=== PATIENT | female | born 1995 | race Caucasian/White ===

== ENCOUNTER 2022-02-08 12:14 | Observation (INO) | payer OTHER, SELFPAY ==
[2022-02-08] VITALS (36 sets, daily range): BP systolic 118–155; BP diastolic 64–97; PULSE 102–140; RESP 16–32; TEMP 37–37.3; O2SAT 94–100; BMI 22.8
--- NOTE | ~2022-02-08 | XR_ITS ---
EXAMINATION: XR chest 1V portable 02/08/2022 12:41 INDICATION: Shortness of breath. Asthma. Cough. PROCEDURE: AP portable chest COMPARISON: No prior studies for comparison. FINDINGS: The lungs are clear. The cardiomediastinal silhouette is within normal limits. There are no pleural effusions. There is no pneumothorax suspected. IMPRESSION: 1: NO ACUTE CARDIOPULMONARY DISEASE. Reviewed, dictated and finalized at location A.
--- NOTE | ~2022-02-08 | CT_ITS ---
EXAMINATION: CTA chest PE protocol DATE: 02/08/2022 17:13 INDICATION: PE suspected TECHNIQUE: Computed tomography angiography (CTA) of the chest was performed with 100 mL Omnipaque-350 intravenous contrast timed to evaluate the pulmonary arteries. Coronal maximum intensity projection 3D-reconstructions were created by the technologist. The dose-length product (DLP) was 172.60 mGy-cm. Automated exposure control and iterative reconstruction technique were employed. COMPARISON: X-ray chest, same date. FINDINGS: Lung parenchyma and airways: Ill-defined areas of centrilobular groundglass opacity with several scat tered centrilobular nodular opacities, best seen in the anterior left lower lobe. Pleura: Unremarkable. Thoracic inlet, axillae and chest wall: Unremarkable. Thoracic aorta: Normal. Mediastinum: Normal. Heart and pericardium: Normal. Coronary artery calcifications: Absent. Upper abdomen: No significant finding. Bones: No acute osseous finding. Pulmonary arteries: Study quality: Mild motion artifact. No pulmonary emboli detected. IMPRESSION: Mildly motion limited examination. Within that constraint, no definite CT evidence of acute pulmonary embolus. Pulmonary opacities may reflect hypersensitivity pneumonitis, respiratory bronchiolitis in smokers, or infectious airways disease. Reviewed, dictated and finalized at location K. IMPRESSION: Mildly motion limited examination. Within that constraint, no definite CT evide nce of acute pulmonary embolus. Pulmonary opacities may reflect hypersensitivit y pneumonitis, respiratory bronchiolitis in smokers, or infectious airways dise ase.
--- NOTE | 2022-02-08 12:29 | ED.ASTHMA ---
HPI - Asthma General Chief Complaint: Asthma Stated Complaint: Asthma Time Seen by Provider: 02/08/22 12:20 Source: RN notes reviewed History of Present Illness HPI Narrative: Patient presents emergency department from home for asthma. Patient states that she has had a flareup of her asthma for the past 3 days states that is been associated with a cough this been nonproductive as well as wheezing she states she has had a low-grade fever of 100.3 she denies any chest pain she denies any abdominal pain nausea or vomiting states she has been using her inhaler at home with minimal relief. Related Data Allergies Allergy/AdvReac Type Severity Reaction Status Date / Time No Known Allergies Allergy Verified 02/08/22 12:30 Review of Systems Review of Systems: Gen.: Reports low-grade fever denies chill Eyes: Eye pain or visual change ENT: Denies congestion Respiratory: See HPI CV: Denies chest pain or palpitations GI: Denies abdominal pain nausea, emesis or diarrhea Musculoskeletal: Denies back pain or muscle pain Neuro: Denies numbness, tingling, weakness or focal weakness Skin: Denies rash Except as documented, all other systems reviewed and negative [facility] Past Medical History Medical History (Updated 02/08/22 @ 18:39 by Mumtaz Smart DO) Asthma Social History Social History (Updated 02/08/22 @ 12:31 by Mumtaz Smart DO) Smoking status: Never smoker Exam Narrative: APPEARANCE: No acute distress, nontoxic, resting in bed EYES: EOMI HEENT: Normocephalic, atraumatic, OMM RESPIRATORY: No respiratory distress wheezing's at the bilateral lung pelayo with decreased breath sounds in the bilateral lung bases no rhonchi CARDIOVASCULAR: Regular rate and rhythm without murmurs rubs or gallops. ABDOMINAL: Soft, nontender, nondistended, no rebound or guarding MUSCULOSKELETAl: Moves all extremities. No clubbing, cyanosis or edema. NEURO: Awake and alert. Following commands, speech normal, no focal deficits SKIN:: Warm, dry. No rashes lesions or abrasions PSYCHIATRIC: Normal affect/mood, Course Course Emergency Course: Patient continues to remain tachycardic CT scan shows pneumonia repeat lung exam shows patient to have wheezing again this time will admit Discussed with ELIAS Comer for Dr. Abreu agrees with admission Discussed with patient and family results of workup and diagnosis. Discussed need for admission. Patient and family understand and agree to current treatment plan Vital Signs Vital signs: Vital Signs Temperature 99.1 F 02/08/22 12:21 Pulse Rate 136 H 02/08/22 12:21 Respiratory Rate 26 H 02/08/22 12:21 Blood Pressure 136/92 H 02/08/22 12:21 Pulse Oximetry 100 02/08/22 12:21 Oxygen Delivery Room Air 02/08/22 12:21 Temperature 99.1 F 02/08/22 12:21 Pulse Rate 114 H 02/08/22 18:12 Respiratory Rate 32 H 02/08/22 18:12 Blood Pressure 136/79 02/08/22 14:30 Pulse Oximetry 100 02/08/22 14:31 Oxygen Delivery Room Air 02/08/22 12:21 MDM - Asthma Lab Data Result diagrams: 02/08/22 14:40 02/08/22 14:40 Labs: Lab Results 02/08/22 02/08/22 02/08/22 Range/Units 12:28 14:40 14:40 WBC 13.1 H (4.5-10.0) K/mm3 RBC 4.30 (4.2-5.4) M/mm3 Hgb 12.6 (12.0-15.0) g/dL Hct 38.6 (37.0-47.0) % MCV 89.8 (80-100) fl MCH 29.3 (26-34) pg MCHC 32.6 (32-36) g/dl RDW 13.5 (11.5-14.5) % Plt Count 163 (150-375) k/mm3 MPV 9.6 (7.4-10.4) fl Immature Gran % (Auto) 0.8 H (0-0.5) % Neut % (Auto) 92.4 H (45.5-73.1) % Lymph % (Auto) 2.9 L (18.3-44.2) % [place] % (Auto) 3.6 (2.6-8.5) % Eos % (Auto) 0.1 (0-4.4) % Baso % (Auto) 0.2 (0.2-1.2) % Lymph # (Auto) 0.38 L (0.9-3.2) K/mm3 [place] # (Auto) 0.5 (0.1-0.6) K/mm3 Eos # (Auto) 0.0 (0-0.3) K/mm3 Baso # (Auto) 0.0 (0.0-0.1) K/mm3 Abs Immat Gran (auto) 0.10 H (0.00-0.031) K/mm3 Absolute Neuts (auto) 12.1 H
[2022-02-08] MEDS: ALBUTEROL SULFATE NEB 2.5 MG/3 ML INH 5 MG INHALATION ×3 (12:39→20:12)
[2022-02-08] MEDS: IPRATROPIUM BR 0.02% INH SOLN 0.5 MG/2.5 ML VIAL INHALATION ×3 (12:39→20:12)
[2022-02-08] MEDS: methylPREDNISolone SOD SUCC 125 MG VIAL IV PUSH (12:46)
--- NOTE | 2022-02-08 13:01 | ECG_ITS ---
Measurements Intervals [place] Rate: 136 P: 68 ME: 113 QRS: 76 QRSD: 73 T: 41 QT: 263 QTc: 396 Interpretive Statements SINUS TACHYCARDIA NONSPECIFIC T-WAVE ABNORMALITY ABNORMAL RHYTHM ECG NO PREVIOUS ECG AVAILABLE FOR COMPARISON Electronically Signed On 02-09-2022 11:24:49 CDT by iRvka Ordaz M.D.
[2022-02-08 13:10] LABS: SARS-CoV-2 RNA PCR Negative
[2022-02-08] MEDS: SODIUM CHLORIDE 0.9% IV 1,000 ML 999 ML IV CONT ×2 (13:45→20:25)
[2022-02-08 14:46] LABS: Basophils Percent Auto 0.2 % (0.2-1.2); Eosinophils Percent Auto 0.1 % (0-4.4); Hematocrit 38.6 % (37.0-47.0); Hemoglobin 12.6 g/dL (12.0-15.0); Immature Granulocyte Percent A 0.8 % (0-0.5); Lymphocytes Absolute Auto 0.38 K/mm3 (0.9-3.2); Lymphocytes Percent Auto 2.9 % (18.3-44.2); Mean Corpuscular HGB Conc 32.6 g/dl (32-36); Mean Corpuscular Hemoglobin 29.3 pg (26-34); Mean Corpuscular Volume 89.8 fl (80-100); Mean Platelet Volume 9.6 fl (7.4-10.4); Monocytes Absolute Auto 0.5 K/mm3 (0.1-0.6); Monocytes Percent Auto 3.6 % (2.6-8.5); Neutrophils Absolute Auto 12.1 K/mm3 (1.3-6.7); Neutrophils Percent Auto 92.4 % (45.5-73.1); Platelet Count Result 163 k/mm3 (150-375); Red Cell Distribution Width 13.5 % (11.5-14.5); White Blood Count 13.1 K/mm3 (4.5-10.0)
[2022-02-08 15:06] LABS: INR 1.1; Prothrombin Time 13.7 Seconds (11.1-14.7)
[2022-02-08 15:08] LABS: Alanine Aminotransferase 25 U/L (6-35); Albumin Level 3.8 g/dL (3.5-5.1); Alkaline Phosphatase 48 U/L (38-126); Anion Gap 8 mmol/L (8-16); Aspartate Amino Transferase 27 U/L (14-36); Bilirubin,Total 0.6 mg/dL (0.2-1.3); Blood Urea Nitrogen 13 mg/dL (7-17); Carbon Dioxide 21 mmol/L (22-30); Chloride 106 mmol/L (98-107); Estimated CRCL calculation 82 ml/min; Estimated Glomerular Filt Rate > 60; Glucose 99 mg/dL (65-110); Partial Thromboplastin Time 27.9 SECONDS (22.3-36.8); Potassium 3.7 mmol/L (3.4-5.0); Sodium 135 mmol/L (137-145)
[2022-02-08 15:12] LABS: D Dimer 0.97 ug/mL (<0.48)
[2022-02-08 18:46] LABS: Lactic Acid Reflex 2.5 mmol/L (0.7-2.0)
--- NOTE | 2022-02-08 19:30 | ADMGEN ---
This patient, Jer Oseguera, was admitted to Medical Room 240-01. Patient/family oriented to hospital policies and general routines including ID bracelet, bed and alarms, visiting hours, pain management, procedures, bathroom and other care routines, personal items, smoking policy, room service/diet, and visiting hours. Information on how to activate the Rapid Response Team has been discussed. Patient/Family are encouraged to report perceived risks to care and to ask questions if they do not understand what they are told or what they should do.
--- NOTE | 2022-02-08 20:18 | PM.IMHP ---
H&P: HPI History of Present Illness Date/Time: 02/08/22 20:18 Chief Complaint: Shortness of breath Narrative: This is a 26-year-old female with past medical history significant for asthma, patient presents to the emergency room due to 3 days of worsening shortness of breath, wheezing, cough, sputum production of yellow phlegm, low-grade temp, has been using her inhaler quite frequently with no improvement of shortness of breath, poor per orally intake, denies any nausea, vomiting, abdominal pain, diarrhea, calves pain. Preliminary workup was significant for CT PE protocol of the chest was reported as: IMPRESSION: Mildly motion limited examination. Within that constraint, no definite CT evidence of acute pulmonary embolus. Pulmonary opacities may reflect hypersensitivity pneumonitis, respiratory bronchiolitis in smokers, or infectious airways disease. Review of Systems Review of Systems: shortness of breath, cough, sputum production, low-grade temp, poor appetite. Constitutional: Constitutional: Reports difficulty sleeping ( Secondary to shortness of breath), Reports fatigue, Reports fever(s) and Reports poor appetite Eyes: Eyes: Denies change in vision ENT: Denies dysphagia, Denies vertigo, Denies dizziness, Denies odynophagia and Denies disequilibrium Cardiovascular: Cardiovascular: Denies chest pain, Denies syncope, Denies irregular heart rhythm, Denies leg edema, Denies lightheadedness and Denies palpitations Respiratory: Respiratory: Reports change in phlegm color ( yellowish), Reports cough, Reports dyspnea and Reports wheezing Gastrointestinal: Gastrointestinal: Denies abdominal pain, Denies dyspepsia, Denies heartburn, Denies diarrhea, Denies nausea and Denies vomiting Genitourinary: Genitourinary: Reports no additional female genitourinary complaints and Reports as per HPI Musculoskeletal: Musculoskeletal: Denies back pain, Denies myalgias, Denies joint swelling and Denies muscle weakness Integumentary/Breasts: Skin/Breast: Denies rash Neurologic: Denies vertigo, Denies dizziness, Denies focal weakness and Denies Sensory deficit (Neuro) Psychiatric: Psychiatric: Reports no additional psychiatric complaints and Reports as per HPI Endocrine: Endocrine: Denies cold intolerance, Denies flushing, Denies heat intolerance, Denies polyphagia, Denies polydipsia and Denies palpitations Hematologic/Lymphatic: Hematologic/Lymphatic: Reports no additional hematologic/lymphatic complaints and Reports as per HPI Allergic/Immunologic: Allergic/Immunologic: Reports no additional allergic/immunologic complaints and Reports as per HPI [facility] Past Medical History Medical History (Updated 02/09/22 @ 01:18 by Cheli Bridges MD) Asthma Family History Family History (Updated 02/08/22 @ 20:36 by Daniel Alaniz, AMY) Grandparent Lung cancer Grandparent Lung cancer Grandparent Parkinsons disease Sibling Severe asthma Father High cholesterol Mother Hypertension Social History Social History (Updated 02/08/22 @ 12:31 by Mumatz Smart DO) Smoking status: Never smoker Alcohol intake: current Drinks per week: 2 Substance use type: marijuana Other substance usage details: edibles on occasion Spiritual care concerns: No Meds Home Medications and Allergies Home Medications Medication Instructions Recorded Confirmed Type albuterol 90 mcg/actuation aerosol 90 mcg inhalation Q2-3H PRN 02/08/22 02/08/22 History inhaler Shortness Of Breath montelukast 10 mg tablet 10 mg PO DAILY 02/08/22 02/08/22 History tezepelumab-ekko 210 mg/1.91 mL 210 mg subcut MONTHLY 02/08/22 02/08/22 History (110 mg/mL) subcutaneous syringe (Tezspire) tiotropium bromide 1.25 2 inh inhalation BID 02/08/22 02/08/22 History mcg/actuation mist for inhalation (Spiriva Respimat) Allergies Allergy/AdvReac Type Severity Reaction Status Date / Time No Known Allergies Allergy Verified 02/08/22 20:
[2022-02-08 21:34] LABS: Reflex Lactic Acid Yes or No Add Lactic
[2022-02-08 21:57] LABS: Lactic Acid 2.2 mmol/L (0.7-2.0)
[2022-02-08] MEDS: methylPREDNISolone SOD SUCC 125 MG VIAL 60 MG IV PUSH (23:15)
[2022-02-09] VITALS (14 sets, daily range): BP systolic 110–119; BP diastolic 61–63; PULSE 90–144; RESP 16–18; TEMP 36.4–36.8; O2SAT 93–96
[2022-02-09] MEDS: IPRATROPIUM BR 0.02% INH SOLN 0.5 MG/2.5 ML VIAL INHALATION ×5 (01:53→19:40)
[2022-02-09] MEDS: ALBUTEROL SULFATE NEB 2.5 MG/3 ML INH 5 MG INHALATION ×5 (01:53→19:39)
[2022-02-09] MEDS: methylPREDNISolone SOD SUCC 125 MG VIAL 60 MG IV PUSH (05:07)
[2022-02-09 05:15] LABS: Basophils Percent Auto 0.2 % (0.2-1.2); Hematocrit 37.2 % (37.0-47.0); Immature Granulocyte Absolute 0.12 K/mm3 (0.00-0.031); Immature Granulocyte Percent A 0.9 % (0-0.5); Lymphocytes Absolute Auto 0.43 K/mm3 (0.9-3.2); Lymphocytes Percent Auto 3.4 % (18.3-44.2); Mean Corpuscular HGB Conc 32.3 g/dl (32-36); Mean Corpuscular Hemoglobin 28.4 pg (26-34); Mean Corpuscular Volume 88.2 fl (80-100); Mean Platelet Volume 9.6 fl (7.4-10.4); Monocytes Absolute Auto 0.2 K/mm3 (0.1-0.6); Monocytes Percent Auto 1.8 % (2.6-8.5); Neutrophils Percent Auto 93.7 % (45.5-73.1); Platelet Count Result 200 k/mm3 (150-375); Red Blood Count 4.22 M/mm3 (4.2-5.4); Red Cell Distribution Width 13.5 % (11.5-14.5); White Blood Count 12.8 K/mm3 (4.5-10.0)
[2022-02-09 05:28] LABS: Alanine Aminotransferase 26 U/L (6-35); Albumin Level 3.8 g/dL (3.5-5.1); Alkaline Phosphatase 40 U/L (38-126); Anion Gap 10 mmol/L (8-16); Aspartate Amino Transferase 28 U/L (14-36); Bilirubin,Total 0.4 mg/dL (0.2-1.3); Blood Urea Nitrogen 14 mg/dL (7-17); Calcium 8.3 mg/dL (8.4-10.2); Carbon Dioxide 20 mmol/L (22-30); Chloride 105 mmol/L (98-107); Estimated CRCL calculation 95 ml/min; Estimated Glomerular Filt Rate > 60; Glucose 135 mg/dL (65-110); Potassium 4.2 mmol/L (3.4-5.0); Sodium 135 mmol/L (137-145)
[2022-02-09] MEDS: UMECLIDINIUM BROMIDE 62.5 MCG ELLIPTA 1 PUFF INHALATION (08:10)
[2022-02-09] MEDS: MONTELUKAST SODIUM 10 MG TABLET PO (08:29)
[2022-02-09] MEDS: ENOXAPARIN 40 MG/0.4 ML SYRINGE SUB-Q (08:29)
[2022-02-09] MEDS: methylPREDNISolone SOD SUCC 40 MG VIAL IV PUSH ×2 (08:30→16:51)
--- NOTE | 2022-02-09 10:00 | PM.IMPN ---
Progress Note: A&P Assessment and Plan (1) Sepsis: Code(s): A41.9 - Sepsis, unspecified organism Status: Acute Assessment and Plan: Patient meets SIRS criteria with tachycardia, tachypnea, source of infection, leukocytosis, lactic acidosis Lactic acid 2.5, repeat 2.1 Secondary to pneumonia Chest xray no cardiopulmonary disease CTA pulmonary opacities reflect hypersensitivity pneumonitis, or infectious airways disease Blood culture pending Sputum culture ordered 2L of fluids given in the ed Continue ceftriaxone and azithromycin WBC trending down currently 12.8 Trend labs Adjust therapy as indicated (2) Community acquired pneumonia: Code(s): J18.9 - Pneumonia, unspecified organism Status: Acute Assessment and Plan: CTA found opacities started on Rocephin and Zithromax Blood cultures and sputum cultures ordered and pending neb treatments await cultures (3) Asthma exacerbation: Code(s): J45.901 - Unspecified asthma with (acute) exacerbation Status: Acute Assessment and Plan: scheduled breathing treatment systemic steroids, titrated down to 40mg IV BID Trend respiratory status Continue home Singulair Restart home inhalers when appropriate Added famotidine, cough syrup Time Spent With Patient Time with patient: Greater than 35 minutes Subjective Date/time seen: 02/09/22 1000 Interval history: 02/09/22999 Patient stated that she is doing okay today. She does still have a pretty harsh cough. She also sounds very tight. She seems to have some congestion that is unrelieved at this time. Patient did state that she was recently admitted to [facility] and this is when this all started patient stated that it was 45 to 50? and raining. At the end of the trip is when she started to have all these changes. She stated that she is able to speak in full sentences today however she does have some shortness of breath walking. Cough still signs con around [place]. Patient is concerned because she has an appoint with her senior cyber security analyst on Wednesday for her asthma shot. Mg was 2.2. 02/08/22? 20:18 ?This is a 26-year-old female with past medical history significant for asthma, patient presents to the emergency room due to 3 days of worsening shortness of breath, wheezing, cough, sputum production of yellow phlegm, low-grade temp, has been using her inhaler quite frequently with no improvement of shortness of breath, poor per orally intake, denies any nausea, vomiting, abdominal pain, diarrhea, calves pain.? Preliminary workup was significant for CT PE protocol of the chest was reported as: IMPRESSION: Mildly motion limited examination. Within that constraint, no definite CT evidence of acute pulmonary embolus. Pulmonary opacities may reflect hypersensitivity pneumonitis, respiratory bronchiolitis in smokers, or infectious airways disease. Review of Systems Review of Systems: All systems reviewed & are unremarkable except as noted in HPI and below Exam Const: General: cooperative, healthy appearing, no acute distress, well developed, alert, awake and well nourished Nutritional Appearance: well nourished Orientation/consciousness: patient oriented x3 Limitations: no limitations HENMT: Head: normal to inspection Ears: hearing grossly normal bilaterally Face/Nose/Sinus: Normal external nose present Mouth: Yes Normal oral and palatal mucosa present, Yes lip normal and Yes tongue normal Teeth and gingiva: abnormal tooth and associated gingiva and poor dentition Eyes: General: appearance normal, both eyes and all related structures Neck: Neck: normal visual inspection, full ROM, trachea midline and supple Chest: Chest palpation & inspection: normal inspection of the chest Resp: Effort & Inspection: normal respiratory effort and able to speak in complete sentences Auscultation: diminished lung
--- NOTE | 2022-02-09 10:00 | P.PNIM_ITS ---
Progress Note: A&P Assessment and Plan (1) Sepsis: Code(s): A41.9 - Sepsis, unspecified organism Status: Acute Assessment and Plan: * Patient meets SIRS criteria with tachycardia, tachypnea, source of infection, leukocytosis, lactic acidosis * Lactic acid 2.5, repeat 2.1 * Secondary to pneumonia * Chest xray no cardiopulmonary disease * CTA pulmonary opacities reflect hypersensitivity pneumonitis, or infectious airways disease * Blood culture pending * Sputum culture ordered * 2L of fluids given in the ed * Continue ceftriaxone and azithromycin * WBC trending down currently 12.8 * Trend labs * Adjust therapy as indicated (2) Community acquired pneumonia: Code(s): J18.9 - Pneumonia, unspecified organism Status: Acute Assessment and Plan: * CTA found opacities * started on Rocephin and Zithromax * Blood cultures and sputum cultures ordered and pending * neb treatments * await cultures (3) Asthma exacerbation: Code(s): J45.901 - Unspecified asthma with (acute) exacerbation Status: Acute Assessment and Plan: * scheduled breathing treatment * systemic steroids, titrated down to 40mg IV BID * Trend respiratory status * Continue home Singulair * Restart home inhalers when appropriate * Added famotidine, cough syrup Time Spent With Patient Time with patient: Greater than 35 minutes Subjective Date/time seen: 02/09/22 1000 Interval history: 02/09/22 1000 Patient stated that she is doing okay today. She does still have a pretty harsh cough. She also sounds very tight. She seems to have some congestion that is unrelieved at this time. Patient did state that she was recently admitted to [facility] and this is when this all started patient stated that it was 45 to 50? and raining. At the end of the trip is when she started to have all these changes. She stated that she is able to speak in full sentences today however she does have some shortness of breath walking. Cough still signs con around [place]. 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 Mg was 2.2. 02/08/22? 20:18 ?This is a 26-year-old female with past medical history significant for asthma, patient presents to the emergency room due to 3 days of worsening shortness of breath, wheezing, cough, sputum production of yellow phlegm, low-grade temp, has been using her inhaler quite frequently with no improvement of shortness of breath, poor per orally intake, denies any nausea, vomiting, abdominal pain, diarrhea, calves pain.? Preliminary workup was significant for CT PE protocol of the chest was reported as: IMPRESSION: Mildly motion limited examination. Within that constraint, no definite CT ev idence of acute pulmonary embolus. Pulmonary opacities may reflect hypersensitivity pneumonitis, respiratory bronchiolitis in smokers, or infectious airways disease. Review of Systems Review of Systems: All systems reviewed & are unremarkable except as noted in HPI and below Exam Const: General: cooperative, healthy appearing, no acute distress, well developed, alert, awake and well nourished Nutritional Appearance: well nourished Orientation/consciousness: patient oriented x3 Limitations: no limitations HENMT: Head: normal to inspection Ears: hearing grossly normal bilaterally Face/Nose/Sinus: Normal external nose present Mouth: Yes Nor
[2022-02-09 10:30] LABS: Magnesium 2.2 mg/dL (1.6-2.3)
[2022-02-09] MEDS: LORATADINE/PSEUDOEPHEDRINE (*CRX) 10/240 MG TABLET ER 24 HR 1 TAB PO (10:46)
[2022-02-09] MEDS: FAMOTIDINE 20 MG TABLET PO ×2 (10:46→20:17)
[2022-02-09] MEDS: guaiFENesin/DEXTROMETHORPHAN 10 ML UDC PO (18:44)
--- NOTE | 2022-02-09 19:47 | PCRCNOTE ---
at 1999 rounds, pt found with HR at 122. pt complaining of high heart rate. RT called Nahomi Castañeda to inquire about changing pt meds from albuterol to levalbuterol to lessen cardiac affects. waiting on a call back to change medication.
--- NOTE | 2022-02-09 19:58 | PCRCNOTE ---
pt HR at 144 post treatment with palpitations. RT called Nahomi Castañeda and Dr. Bridges and left messages. waiting on the call back.
--- NOTE | 2022-02-09 21:38 | PCRCNOTE ---
telephone order read back from Dr. Bridges to change albuterol to levalbuterol Q4H.
[2022-02-10] VITALS (12 sets, daily range): BP systolic 122; BP diastolic 68–74; PULSE 89–118; RESP 16–18; TEMP 36.5–36.6; O2SAT 92–96
[2022-02-10] MEDS: LEVALBUTEROL NEB 1.25 MG/3 ML 0.63 MG INHALATION ×5 (00:05→16:46)
[2022-02-10] MEDS: IPRATROPIUM BR 0.02% INH SOLN 0.5 MG/2.5 ML VIAL INHALATION ×5 (00:05→16:47)
--- NOTE | 2022-02-10 04:10 | PCRCNOTE ---
pt is no longer complaining of high heart rate and states that she feels better after medication was switched from albuterol to levalbuterol. HR at 410 is 100 BPM compared to 144 at 1999.
[2022-02-10 05:41] LABS: Basophils Percent Auto 0.1 % (0.2-1.2); Hematocrit 37.2 % (37.0-47.0); Hemoglobin 12.2 g/dL (12.0-15.0); Immature Granulocyte Absolute 0.18 K/mm3 (0.00-0.031); Immature Granulocyte Percent A 0.9 % (0-0.5); Lymphocytes Absolute Auto 1.07 K/mm3 (0.9-3.2); Lymphocytes Percent Auto 5.1 % (18.3-44.2); Mean Corpuscular HGB Conc 32.8 g/dl (32-36); Mean Corpuscular Hemoglobin 28.8 pg (26-34); Mean Corpuscular Volume 87.9 fl (80-100); Mean Platelet Volume 9.9 fl (7.4-10.4); Monocytes Absolute Auto 1.4 K/mm3 (0.1-0.6); Monocytes Percent Auto 6.7 % (2.6-8.5); Neutrophils Absolute Auto 18.4 K/mm3 (1.3-6.7); Neutrophils Percent Auto 87.2 % (45.5-73.1); Platelet Count Result 260 k/mm3 (150-375); Red Blood Count 4.23 M/mm3 (4.2-5.4); Red Cell Distribution Width 13.7 % (11.5-14.5); White Blood Count 21.1 K/mm3 (4.5-10.0)
[2022-02-10 06:00] LABS: Alanine Aminotransferase 26 U/L (6-35); Albumin Level 3.8 g/dL (3.5-5.1); Alkaline Phosphatase 39 U/L (38-126); Anion Gap 9 mmol/L (8-16); Aspartate Amino Transferase 27 U/L (14-36); Bilirubin,Total 0.4 mg/dL (0.2-1.3); Blood Urea Nitrogen 16 mg/dL (7-17); Calcium 8.2 mg/dL (8.4-10.2); Carbon Dioxide 24 mmol/L (22-30); Chloride 103 mmol/L (98-107); Estimated CRCL calculation 82 ml/min; Estimated Glomerular Filt Rate > 60; Glucose 121 mg/dL (65-110); Sodium 136 mmol/L (137-145)
[2022-02-10] MEDS: LORATADINE/PSEUDOEPHEDRINE (*CRX) 10/240 MG TABLET ER 24 HR 1 TAB PO (08:27)
[2022-02-10] MEDS: MONTELUKAST SODIUM 10 MG TABLET PO (08:27)
[2022-02-10] MEDS: ENOXAPARIN 40 MG/0.4 ML SYRINGE SUB-Q (08:28)
[2022-02-10] MEDS: FAMOTIDINE 20 MG TABLET PO (08:28)
[2022-02-10] MEDS: methylPREDNISolone SOD SUCC 40 MG VIAL IV PUSH (08:28)
[2022-02-10] MEDS: UMECLIDINIUM BROMIDE 62.5 MCG ELLIPTA 1 PUFF INHALATION (08:37)
--- NOTE | 2022-02-10 10:45 | P.DS_ITS ---
DS: Admitting Diagnosis Discharge Date 02/10/22 1045 Admitting Diagnosis Asthma exacerbation, PNA, Sepsis DS: Discharge Diagnosis Discharge Diagnosis (1) Sepsis: Code(s): A41.9 - Sepsis, unspecified organism Status: Acute Assessment and Plan: * Patient meets SIRS criteria with tachycardia, tachypnea, source of infection, leukocytosis, lactic acidosis * Lactic acid 2.5, repeat 2.1 * Secondary to pneumonia * Chest xray no cardiopulmonary disease * CTA pulmonary opacities reflect hypersensitivity pneumonitis, or infectious airways disease * Blood culture pending * Sputum culture ordered * 2L of fluids given in the ed * Continue ceftriaxone and azithromycin * WBC trending down currently 12.8 * Trend labs * Adjust therapy as indicated (2) Community acquired pneumonia: Code(s): J18.9 - Pneumonia, unspecified organism Status: Acute Assessment and Plan: * CTA found opacities * started on Rocephin and Zithromax * Blood cultures and sputum cultures ordered and pending * neb treatments * await cultures (3) Asthma exacerbation: Code(s): J45.901 - Unspecified asthma with (acute) exacerbation Status: Acute Assessment and Plan: * scheduled breathing treatment * systemic steroids, titrated down to 40mg IV BID * Trend respiratory status * Continue home Singulair * Restart home inhalers when appropriate * Added famotidine, cough syrup (4) Leukocytosis: Code(s): D72.829 - Elevated white blood cell count, unspecified Status: Acute Assessment and Plan: * WBC elevated to 21.1 * Highly likely related to steroid use * Antibiotics continued at this time * Follow up lead oxide mill tender appointment in the am DS: Summary Hospital Course Hospital Course: Patient is a 26-year-old female with a past medical history of asthma who presented to the ED with complaints worsening shortness of Breath wheezing, coughing, sputum production any low from with a low-grade temperature. Prior to arriving to the hospital patient had went to [place] for a wedding were was cold and raining. Prior to arrival patient was doing her neb treatments 3 times a 6 hour. Upon arrival patient was noted to be and is sepsis with tachycardia, tachypnea, leukocytosis, lactic acidosis with a primary source being pneumonia. CTA showed pulmonary opacities and Infectious airways. Blood cultures are negative to date. Sputum culture pending. Patient was given IV fluids in the ED and was started on ceftriaxone and azithromycin. Patient was also noted to be in and acute asthma exacerbation and was given steroids that have been titrated. Magnesium was normal. Neb treatments was also given scheduled. Famotidine and cough syrup was also added. Patient has appointment with her lead oxide mill tender on 02/11/2022 and receives monthly injections for her asthma control. Patient is feeling better. She still has a cough and her lung sounds are diminished. She is able to walk around and is feeling better. Patient denies any chest pain, nausea, vomiting, diarrhea, constipation, weakness or fatigue. Patient is able to walk around and not feel short of of breath. Patient is stable for discharge for labs and vital signs at this time it is noted that her WBCs are elevated which is more likely related to steroids. Reviewed the case with Dr. Abreu, Dr. Kirkpatrick went into and see the patient, and felt the patient could be discharged as well. Called and up
--- NOTE | 2022-02-10 10:45 | PM.DS ---
DS: Admitting Diagnosis Discharge Date 02/10/22 1045 Admitting Diagnosis Asthma exacerbation, PNA, Sepsis DS: Discharge Diagnosis Discharge Diagnosis (1) Sepsis: Code(s): A41.9 - Sepsis, unspecified organism Status: Acute Assessment and Plan: Patient meets SIRS criteria with tachycardia, tachypnea, source of infection, leukocytosis, lactic acidosis Lactic acid 2.5, repeat 2.1 Secondary to pneumonia Chest xray no cardiopulmonary disease CTA pulmonary opacities reflect hypersensitivity pneumonitis, or infectious airways disease Blood culture pending Sputum culture ordered 2L of fluids given in the ed Continue ceftriaxone and azithromycin WBC trending down currently 12.8 Trend labs Adjust therapy as indicated (2) Community acquired pneumonia: Code(s): J18.9 - Pneumonia, unspecified organism Status: Acute Assessment and Plan: CTA found opacities started on Rocephin and Zithromax Blood cultures and sputum cultures ordered and pending neb treatments await cultures (3) Asthma exacerbation: Code(s): J45.901 - Unspecified asthma with (acute) exacerbation Status: Acute Assessment and Plan: scheduled breathing treatment systemic steroids, titrated down to 40mg IV BID Trend respiratory status Continue home Singulair Restart home inhalers when appropriate Added famotidine, cough syrup (4) Leukocytosis: Code(s): D72.829 - Elevated white blood cell count, unspecified Status: Acute Assessment and Plan: WBC elevated to 21.1 Highly likely related to steroid use Antibiotics continued at this time Follow up zinc plate grainer appointment in the am DS: Summary Hospital Course Hospital Course: Patient is a 26-year-old female with a past medical history of asthma who presented to the ED with complaints worsening shortness of Breath wheezing, coughing, sputum production any low from with a low-grade temperature. Prior to arriving to the hospital patient had went to [place] for a wedding were was cold and raining. Prior to arrival patient was doing her neb treatments 3 times a 6 hour. Upon arrival patient was noted to be and is sepsis with tachycardia, tachypnea, leukocytosis, lactic acidosis with a primary source being pneumonia. CTA showed pulmonary opacities and Infectious airways. Blood cultures are negative to date. Sputum culture pending. Patient was given IV fluids in the ED and was started on ceftriaxone and azithromycin. Patient was also noted to be in and acute asthma exacerbation and was given steroids that have been titrated. Magnesium was normal. Neb treatments was also given scheduled. Famotidine and cough syrup was also added. Patient has appointment with her zinc plate grainer on 02/11/2022 and receives monthly injections for her asthma control. Patient is feeling better. She still has a cough and her lung sounds are diminished. She is able to walk around and is feeling better. Patient denies any chest pain, nausea, vomiting, diarrhea, constipation, weakness or fatigue. Patient is able to walk around and not feel short of of breath. Patient is stable for discharge for labs and vital signs at this time it is noted that her WBCs are elevated which is more likely related to steroids. Reviewed the case with Dr. Abreu, Dr. Kirkpatrick went into and see the patient, and felt the patient could be discharged as well. Called and updated her zinc plate grainer about this visit. Status at Discharge Functional status at discharge: independent ambulation Overall status at discharge: patient is progressing back to baseline Time Spent with Patient Time attestation: Total time spent providing and/or coordinating discharge services: 35 minutes Time spent: Greater than 30 minutes Specific discharge activities: Diagnostic testing, chart review, developing a treatment plan
[2022-02-10] MEDS: MAGNESIUM SULF 2 GM/WATER 50ML 2 GM/50 ML BAG IVPB (11:29)
== END 2022-02-10 17:20 | disposition home or self-care (01) ==
LOC: ANHED 18:39 → ANH2MED 19:20
PROVIDERS: Nurse Practitioner; Admitting Provider Internal Medicine; Emergency Provider Emergency Medicine; Visit Provider Hospitalist
DX: A41.9 Sepsis, unspecified organism (principal); J18.9 Pneumonia, unspecified organism; J45.901 Unspecified asthma with (acute) exacerbation; D72.829 Elevated white blood cell count, unspecified; R00.0 Tachycardia, unspecified; R94.31 Abnormal electrocardiogram [ECG] [EKG]; F12.90 Cannabis use, unspecified, uncomplicated; F10.90 Alcohol use, unspecified, uncomplicated; Z20.822 Contact with and (suspected) exposure to COVID-19; Z79.51 Long term (current) use of inhaled steroids; Z79.899 Other long term (current) drug therapy; Z82.5 Family history of asthma and other chronic lower respiratory diseases; Z80.1 Family history of malignant neoplasm of trachea, bronchus and lung
CPT/HCPCS: 36415; 71045; 71275; 80053; 81025; 83605; 83735; 85025; 85380; 85610; 85730; 87040; 87070; 87205; 93005; 94640; 96361; 96365; 96367; 96372; 96375; 96376; 99285; A9270; C9803; G0378; J0456; J0696; J1650; J2920; J2930; J3475; J7030; Q9967; U0003; U0005